=== PATIENT | male | born 1955 | race Caucasian/White ===

== ENCOUNTER 2020-12-25 10:24 | Emergency (ER) | payer OTHER ==
[~2020-12-25] VITALS: Ht 177.8 cm; Wt 70.3 kg
[2020-12-25] MEDS ORDERED: INTESTINEX680 M1 PO (13:43)
[2020-12-25] MEDS ORDERED: AMOX-CLAV 875-1 EAC1 PO (13:43)
== END 2020-12-25 13:49 ==
LOC: ER 10:24
DX: S80.872A Other superficial bite, left lower leg, initial encounter (principal); W54.0XXA Bitten by dog, initial encounter; Y93.89 Activity, other specified; Y92.018 Other place in single-family (private) house as the place of occurrence of the external cause; Y99.8 Other external cause status